=== PATIENT | female | born 2000 | race Caucasian/White ===

== ENCOUNTER 2020-02-14 07:47 | Emergency (ER) | payer SELFPAY ==
[2020-02-14 07:53] VITALS: BP 136/95; PULSE 78; RESP 20; TEMP 36.8; O2SAT 100
--- NOTE | 2020-02-14 07:57 | ED.NAVMDI ---
HPI - Nausea/Vomiting/Diarrhea General Chief complaint: Nausea/Vomiting/Diarrhea Stated complaint: N/V - I drank too much last night Time Seen by Provider: 02/14/20 07:50 History of Present Illness HPI Narrative: Patient is a 19-year-old female who presents the ER with nausea and vomiting. Reports 20 episodes of emesis the last 12 hours. Began after she drink alcohol. She does have history of cyclic vomiting. She reports small amounts of diarrhea. No known sick contacts. No fevers or chills or sweats. Symptoms worsened by eating or drinking. Has not taken any medications for this. Reports burning epigastric pain. Related Data Allergies Allergy/AdvReac Type Severity Reaction Status Date / Time No Known Allergies Allergy Verified 02/14/20 09:09 Review of Systems Review of Systems: All systems reviewed & are unremarkable except as noted in HPI and below Constitutional: Constitutional: Denies chills, Denies fever(s) and Denies weakness ENT: Denies nasal congestion and Denies sore throat Respiratory: Respiratory: Denies cough, Denies dyspnea and Denies wheezing Gastrointestinal: Gastrointestinal: Reports abdominal pain, Reports diarrhea, Reports nausea and Reports vomiting Genitourinary: Genitourinary: Denies nocturia and Denies dysuria PMFSH Past Medical History Medical History (Updated 02/14/20 @ 12:29 by Orville Kiran MD) Cyclic vomiting syndrome Surgical History Surgical History (Updated 02/14/20 @ 07:58 by Orville Kiran MD) No pertinent past surgical history Social History Social History (Updated 02/14/20 @ 08:00 by Orville Kiran MD) Alcohol intake: current Gender identity (if verbalized by the patient): Female Exam Narrative: Exam Narrative: GENERAL: Well-appearing, well-nourished, and in no acute distress. HEAD: Normocephalic, atraumatic. ENT: Mucous membranes moist. CHEST: Clear to auscultation. No respiratory distress. HEART: Regular rate and rhythm. Normal peripheral pulses. ABDOMEN: Soft, nontender, nondistended, normal active bowel sounds. EXTREMITIES: Normal range of motion. No edema. SKIN: Warm, dry, no rash. NEURO: Alert and oriented x3. Course Course Emergency Course: Hydrated, informed of results, discharge home. Vital Signs Vital signs: Vital Signs Temperature 98.3 F 02/14/20 07:53 Pulse Rate 78 02/14/20 07:53 Respiratory Rate 20 02/14/20 07:53 Blood Pressure 136/95 H 02/14/20 07:53 Pulse Oximetry 100 02/14/20 07:53 Temperature 98.3 F 02/14/20 07:53 Pulse Rate 77 02/14/20 11:03 Respiratory Rate 20 02/14/20 11:03 Blood Pressure 128/82 02/14/20 11:03 Pulse Oximetry 99 02/14/20 11:03 MDM - Nausea/Vomiting/Diarrhea Lab Data Result diagrams: 02/14/20 08:05 02/14/20 08:05 Labs: Lab Results 02/14/20 02/14/20 02/14/20 Range/Units 08:05 08:05 08:08 WBC 15.1 H (4.5-10.0) K/mm3 RBC 5.10 (4.2-5.4) M/mm3 Hgb 15.4 H (12.0-15.0) g/dL Hct 45.0 (37.0-47.0) % MCV 88.2 (80-100) fl MCH 30.2 (26-34) pg MCHC 34.2 (32-36) g/dl RDW 12.9 (11.5-14.5) % Plt Count 420 H (150-375) k/mm3 MPV 8.9 (7.4-10.4) fl Immature Gran % (Auto) 0.5 (0-0.5) % Neut % (Auto) 86.1 H (45.5-73.1) % Lymph % (Auto) 9.6 L (18.3-44.2) % [place] % (Auto) 3.3 (2.6-8.5) % Eos % (Auto) 0.2 (0-4.4) % Baso % (Auto) 0.3 (0.2-1.2) % Lymph # (Auto) 1.44 (0.9-3.2) K/mm3 [place] # (Auto) 0.5 (0.1-0.6) K/mm3 Eos # (Auto) 0.0 (0-0.3) K/mm3 Baso # (Auto) 0.0 (0.0-0.1) K/mm3 Abs Immat Gran (auto) 0.07 H (0.00-0.031) K/mm3 Absolute Neuts (auto) 13.0 H (1.3-6.7) K/mm3 Absolute Nucleated RBC 0.0 (0.0-0.012) K/mm3 Nucleated RBC % 0.0 (0.0-0.2) % Sodium 140 (137-145) mmol/L Potassium 4.0 (3.4-5.0) mmol/L Chloride 107 (98-107) mmol/L Carbon Dioxide 21 L (22-30) mmol/L BUN 8 (7-17) mg/dL Creatinine 0
[2020-02-14] MEDS: ONDANSETRON INJ 4 MG/2 ML VIAL IV PUSH (08:09)
[2020-02-14] MEDS: SODIUM CHLORIDE 0.9% IV 1,000 ML 999 ML IV CONT (08:09)
[2020-02-14 08:14] LABS: Basophils Percent Auto 0.3 % (0.2-1.2); Eosinophils Percent Auto 0.2 % (0-4.4); Hemoglobin 15.4 g/dL (12.0-15.0); Immature Granulocyte Absolute 0.07 K/mm3 (0.00-0.031); Immature Granulocyte Percent A 0.5 % (0-0.5); Lymphocytes Absolute Auto 1.44 K/mm3 (0.9-3.2); Lymphocytes Percent Auto 9.6 % (18.3-44.2); Mean Corpuscular HGB Conc 34.2 g/dl (32-36); Mean Corpuscular Hemoglobin 30.2 pg (26-34); Mean Corpuscular Volume 88.2 fl (80-100); Mean Platelet Volume 8.9 fl (7.4-10.4); Monocytes Absolute Auto 0.5 K/mm3 (0.1-0.6); Monocytes Percent Auto 3.3 % (2.6-8.5); Neutrophils Percent Auto 86.1 % (45.5-73.1); Platelet Count Result 420 k/mm3 (150-375); Red Cell Distribution Width 12.9 % (11.5-14.5); White Blood Count 15.1 K/mm3 (4.5-10.0)
[2020-02-14 08:17] LABS: Add Urine Microscopic? YES; Appearance Urine Cloudy (Clear); Bacteria Urine Trace /hpf; Bilirubin Urine Negative (Negative); Blood Urine Negative (Negative); Color Urine Yellow (Yellow); Glucose Urine UA Negative (Negative); Ketones Urine Trace mg/dL (Negative); Leukocyte Esterase Ur 1+ LEU/UL (Negative); Mucus Urine Rare /lpf; Nitrate Urine Negative (Negative); Protein Urine 2+ mg/dL (Negative); RBC Urine 0-2 /hpf (0-2); Squamous Epithelial Cell Urine Many /hpf (Few); Urobilinogen Urine Negative mg/dL (<2.0)
[2020-02-14 08:32] LABS: Alanine Aminotransferase 19 U/L (4-35); Albumin Level 5.1 g/dL (3.5-5.1); Alkaline Phosphatase 113 U/L (38-126); Aspartate Amino Transferase 30 U/L (14-36); Bilirubin,Total 0.4 mg/dL (0.2-1.3); Blood Urea Nitrogen 8 mg/dL (7-17); Calcium 9.7 mg/dL (8.4-10.2); Carbon Dioxide 21 mmol/L (22-30); Chloride 107 mmol/L (98-107); Estimated Glomerular Filt Rate > 60; Glucose 116 mg/dL (65-105); Lipase 32 U/L (23-300); Sodium 140 mmol/L (137-145)
[2020-02-14] MEDS: BELLADONNA ALK/PHENOB ELIX 10 ML, MAG HYDROX/ALUMINUM HYD/SIMETH 30 ML, LIDOCAINE HCL 2... PO (09:08)
[2020-02-14 09:10] VITALS: PULSE 79; RESP 13
--- NOTE | 2020-02-14 09:12 | ECG_ITS ---
Measurements Intervals [place] Rate: 73 P: 52 RI: 177 QRS: 85 QRSD: 110 T: 41 QT: 384 QTc: 424 Interpretive Statements SINUS RHYTHM WITH MARKED SINUS ARRHYTHMIA INCOMPLETE RIGHT BUNDLE BRANCH BLOCK BORDERLINE ECG Electronically Signed On 02-14-2020 10:16:44 CDT by Phillip Garcia D.O.
[2020-02-14 11:03] VITALS: BP 128/82; PULSE 77; RESP 20; O2SAT 99
[2020-02-14 13:24] VITALS: BP 125/88; PULSE 87; RESP 18; O2SAT 100
== END 2020-02-14 13:25 | disposition home or self-care (01) ==
PROVIDERS: Emergency Provider Emergency Medicine; PCP Nurse Practitioner Family
DX: R11.10 Vomiting, unspecified (principal); I45.10 Unspecified right bundle-branch block
CPT/HCPCS: 36415; 80053; 81001; 81025; 83690; 85025; 93005; 96361; 96374; 99284; A9270; J2405; J7030

== ENCOUNTER 2021-07-10 13:45 | Emergency (ER) | payer BC, SELFPAY ==
[2021-07-10 13:54] VITALS: BP 137/72; PULSE 88; RESP 14; TEMP 36.7; O2SAT 100
[2021-07-10 15:30] VITALS: BP 142/82; PULSE 89; RESP 18; TEMP 37; O2SAT 98
--- NOTE | 2021-07-10 15:53 | PC.NURSE ---
patient left waiting room prior to being seen
== END 2021-07-10 20:06 | disposition left against medical advice (07) ==
DX: R11.2 Nausea with vomiting, unspecified (principal)
CPT/HCPCS: 99199